=== PATIENT | female | born 2000 | race African-American/Black ===

== ENCOUNTER 2019-05-16 19:10 | Emergency (ER) | payer OTHER ==
[~2019-05-16] VITALS: Ht 154.9 cm; Wt 49.9 kg
[2019-05-16 19:10] VITALS: BP 113/68
--- NOTE | 2019-05-16 19:13 | NUR ---
TO LOBBY A/W BED AMBULATORY
--- NOTE | 2019-05-16 19:37 | NUR ---
PT AMBULATED TO BED 12.
--- NOTE | 2019-05-16 19:40 | NUR ---
PT 18 Y/O FEMALE BIB SELF FOR C/O N/V/D X 2 DAYS. PT AAO X 4. PT HAS 5/10 LOWER ABD PAIN PROVOKED BY PALPATION AND VOMITING. PT STATES SHE HAS X 5 EPISODES OF VOMITING DAILY. AMD IS SOFT, FLAT, AND TENDER UPON PALPATION. RESPIRATIONS ARE EVEN AND UNLABORED. SKIN IS WARM AND DRY TO TOUCH. BED LOCKED AND IN LOWEST POSIOTION. MEDHX: NONE ALLERGIES: NKA
--- NOTE | 2019-05-16 19:48 | NUR ---
DR YAUN AT BEDSIDE.
[2019-05-16] MEDS ORDERED: NACL 0.9% 1,000 ML IV ONE (19:50)
[2019-05-16] MEDS ORDERED: METOCLOPRAMIDE 10 MG/2 ML INJ VIAL IVP ONE (19:50)
[2019-05-16 20:10] LABS: BASOPHILS % (AUTO) 0.3 % (0.0-2.0); HEMATOCRIT 42.6 % (36-48); HEMOGLOBIN 14.2 g/dL (12.0-16.0); LYMPHOCYTES # (AUTO) 1.2 K/uL (2.5-16.5); LYMPHOCYTES % (AUTO) 18.8 % (20.5-51.1); MEAN CORPUSCULAR HEMOGLOBIN 27 pg (27-31); MEAN CORPUSCULAR HGB CONC 33 g/dL (33-37); MEAN CORPUSCULAR VOLUME 80.6 fL (80-94); MONOCYTES # (AUTO) 0.6 K/uL (0.8-1.0); MONOCYTES % (AUTO) 8.8 % (1.7-9.3); NEUTROPHILS # (AUTO) 4.6 K/uL (1.8-7.7); NEUTROPHILS % (AUTO) 72.1 % (42.2-75.2); PLATELET COUNT (AUTO) 238 K/uL (140-450); RED BLOOD CELL COUNT(AUTO) 5.29 MIL/uL (4.20-5.40); WHITE BLOOD COUNT (AUTO) 6.3 K/uL (4.5-11.0)
[2019-05-16 20:24] LABS: ANION GAP 16.2 (8-16); CARBON DIOXIDE 26.7 mmol/L (21-32); CREATININE 1.1 mg/dL (0.6-1.3); POTASSIUM 3.9 mmol/L (3.5-5.1)
[2019-05-16 20:29] LABS: ALBUMIN 4.8 g/dL (3.4-5.0); TOTAL BILIRUBIN 1.3 mg/dL (0.0-1.0)
[2019-05-16] MEDS ORDERED: PROCHLORPERAZINE 10 MG/2 ML VIAL IVP ONE (20:50)
--- NOTE | 2019-05-16 20:50 | NUR ---
PT GIVEN REGLAN IVP WITH INEFFECTIVE RESULTS. DR. YUAN NOTIFED AND GAVE NEW ORDER FOR COMPAZINE 10 IVP. IV SITE AT L AC. NS 0.9% 1L RUNNING W/O CONTINUSLY. IV SITE IS PATENT, NO SWELLING, REDNESS, OR PAIN NOTED. WILL CONTINUE TO MONITOR.
[2019-05-16] MEDS ORDERED: KETOROLAC 30 MG/ML VIAL IVP ONE (21:20)
--- NOTE | 2019-05-16 22:18 | NUR ---
PT CAME BACK FROM CT.
--- NOTE | 2019-05-16 23:06 | NUR ---
Note criss in ED - 05/16/19 at 2307 by [facility] BINDER TECHNICIAN AT BEDSIDE. BREATHING TX IN PROGRESS.
--- NOTE | 2019-05-16 23:30 | NUR ---
PT STATES HER ABD PAIN IS NOW 0/10. PT STATES NAUSEA HAS DECREASED. RESPIRATIONS ARE EVEN AND UNLABORED SKIN IS WARM AND DRY TO TOUCH. PT RESTING IN BED EYES OPEN. BED LOCKED AND IN LOWEST POSITION.
[2019-05-16 23:34] VITALS: BP 113/68
== END 2019-05-16 23:34 | disposition home or self-care (01) ==
LOC: MED 19:10
DX: K52.9 Noninfective gastroenteritis and colitis, unspecified (principal)
CPT/HCPCS: 36415; 74176; 80053; 81025; 85025; 87804; 96361; 96374; 96375; 99284; J0780; J1885; J2765; J7030

== ENCOUNTER 2022-01-01 09:18 | Emergency (ER) | payer BC, OTHER ==
[~2022-01-01] VITALS: Ht 154.9 cm; Wt 59.9 kg
[2022-01-01 09:47] VITALS: BP 124/85
--- NOTE | 2022-01-01 10:06 | NUR ---
21/F PRESENTS TO ED WITH C/O LOWER ABDOMINAL PAIN, N/V/D SINCE THIS MORNING. REPORTS SHE STARTED HER PERIOD TODAY AND SOMETIMES CAUSES SIMILAR SYMPTOMS. PATIENT ADMITS TO DRINKING BEER AND SMOKING MARIJUANA LAST NIGHT, STATES SHE TOOK TYLENOL BUT VOMITED IT UP. DENIES RECENT SICK CONTACTS.
[2022-01-01] MEDS ORDERED: NACL 0.9% 1,000 ML IV SCH (10:20)
[2022-01-01] MEDS ORDERED: ONDANSETRON 4 MG/2 ML VIAL IVP ONE ×2 (10:20→12:15)
[2022-01-01] MEDS ORDERED: FAMOTIDINE 20 MG/2 ML VIAL IVP ONE (10:20)
[2022-01-01] MEDS ORDERED: KETOROLAC 30 MG/ML VIAL IVP ONE (10:20)
[2022-01-01 11:07] LABS: BASOPHILS % (AUTO) 0.3 % (0.0-2.0); HEMATOCRIT 35.2 % (36-48); HEMOGLOBIN 11.9 g/dL (12.0-16.0); LYMPHOCYTES # (AUTO) 0.8 K/uL (2.5-16.5); LYMPHOCYTES % (AUTO) 8.8 % (20.5-51.1); MEAN CORPUSCULAR HEMOGLOBIN 27 pg (27-31); MEAN CORPUSCULAR HGB CONC 34 g/dL (33-37); MEAN CORPUSCULAR VOLUME 80.2 fL (80-94); MONOCYTES # (AUTO) 0.3 K/uL (0.8-1.0); MONOCYTES % (AUTO) 2.8 % (1.7-9.3); NEUTROPHILS # (AUTO) 8.1 K/uL (1.8-7.7); NEUTROPHILS % (AUTO) 88.1 % (42.2-75.2); PLATELET COUNT (AUTO) 218 K/uL (140-450); RED BLOOD CELL COUNT(AUTO) 4.38 MIL/uL (4.20-5.40); RED CELL DISTRIBUTION WIDTH 13.4 % (11.6-13.7); WHITE BLOOD COUNT (AUTO) 9.2 K/uL (4.8-10.8)
[2022-01-01 11:11] LABS: ALBUMIN 3.5 g/dL (3.4-5.0); ANION GAP 13.4 (8-16); CARBON DIOXIDE 23.6 mmol/L (21-32); TOTAL BILIRUBIN 0.3 mg/dL (0.0-1.0)
[2022-01-01] MEDS ORDERED: ATRO1TAB PO (12:32)
[2022-01-01] MEDS ORDERED: ONDA-188 PO (12:32)
[2022-01-01] MEDS ORDERED: METOCLOPRAMIDE 10 MG/2 ML INJ VIAL IVP ONE (13:00)
[2022-01-01] MEDS ORDERED: METOCLOPRAMIDE 10 MG/2 ML INJ VIAL ONE (13:01)
[2022-01-01 13:20] VITALS: BP 110/91
--- NOTE | 2022-01-01 13:20 | NUR ---
Patient discharged with v/s stable. Written and verbal after care instructions given and explained. Patient alert, oriented and verbalized understanding of instructions. Ambulatory with steady gait. All questions addressed prior to discharge. ID band removed. Patient advised to follow up with PMD. Rx of LOMOTIL AND ZOFRAN given. Patient educated on indication of medication including possible reaction and side effects. Opportunity to ask questions provided and answered.
== END 2022-01-01 13:20 | disposition home or self-care (01) ==
LOC: MED 09:18
DX: R19.7 Diarrhea, unspecified (principal); R11.2 Nausea with vomiting, unspecified; F17.210 Nicotine dependence, cigarettes, uncomplicated; F12.90 Cannabis use, unspecified, uncomplicated; Z79.899 Other long term (current) drug therapy
CPT/HCPCS: 36415; 80053; 81002; 81025; 83690; 85025; 96361; 96374; 96375; 96376; 99284; J1885; J2405; J2765; J3490; J7030

== ENCOUNTER 2022-01-03 10:05 | Emergency (ER) | payer OTHER ==
[~2022-01-03] VITALS: Ht 154.9 cm; Wt 58.5 kg
[~2022-01-03 10:05] MED LIST: ATRO1TAB PO; ONDA-188 PO
[2022-01-03 10:18] VITALS: BP 122/64
--- NOTE | 2022-01-03 11:51 | NUR ---
AMBULATED TO BED 5
[2022-01-03] MEDS ORDERED: ONDANSETRON 4 MG/2 ML VIAL IVP ONE (12:30)
[2022-01-03] MEDS ORDERED: diphenhydrAMINE 50 MG/ML VIAL IVP ONE (12:30)
[2022-01-03] MEDS ORDERED: NACL 0.9% 1,000 ML IV ONE (12:30)
--- NOTE | 2022-01-03 13:07 | NUR ---
21YO FEMALE PT C/O LOWER ABDOMINAL DISCOMFORT DUE TO N/V X3DAYS. PT UNABLE TO RECALL XVOMIT AND NOTES BLOOD. STATES TRYING TO TAKE TYLENOL FOR RELIEF BUT WAS UNABLE TO KEEP DOWN. ABDOMEN NON DISTENDED OR TENDER, ACTIVE X4. DENIES CHEST PAIN, SOB, FEVR OR CHILLS. PT WAS RECENTLY SEEN IN ER FOR S/S W/ NO RELIEF AFTER D/C . PT AAOX4, RESPIRATIONS EVEN AND UNLABORED. HX: DENIES NKA
[2022-01-03 13:22] LABS: BASOPHILS % (AUTO) 0.4 % (0.0-2.0); EOSINOPHILS % (AUTO) 0.1 % (0.0-4.0); HEMATOCRIT 36.4 % (36-48); HEMOGLOBIN 12.2 g/dL (12.0-16.0); LYMPHOCYTES # (AUTO) 1.4 K/uL (2.5-16.5); LYMPHOCYTES % (AUTO) 20.1 % (20.5-51.1); MEAN CORPUSCULAR HEMOGLOBIN 27 pg (27-31); MEAN CORPUSCULAR HGB CONC 33 g/dL (33-37); MEAN CORPUSCULAR VOLUME 80.2 fL (80-94); MONOCYTES # (AUTO) 0.4 K/uL (0.8-1.0); MONOCYTES % (AUTO) 5.4 % (1.7-9.3); PLATELET COUNT (AUTO) 232 K/uL (140-450); RED BLOOD CELL COUNT(AUTO) 4.54 MIL/uL (4.20-5.40); RED CELL DISTRIBUTION WIDTH 13.1 % (11.6-13.7); WHITE BLOOD COUNT (AUTO) 6.8 K/uL (4.8-10.8)
[2022-01-03 13:34] LABS: ALBUMIN 3.5 g/dL (3.4-5.0); ANION GAP 11.8 (8-16); POTASSIUM 3.8 mmol/L (3.5-5.1); TOTAL BILIRUBIN 0.8 mg/dL (0.0-1.0)
[2022-01-03] MEDS ORDERED: METOCLOPRAMIDE 10 MG/2 ML INJ VIAL IVP ONE (13:35)
[2022-01-03] MEDS ORDERED: LORazepam 2 MG/ML VIAL IVP ONE (13:35)
[2022-01-03] MEDS ORDERED: CAPSAICIN 0.025% CRE 60 GM TUBE TP STA (16:16)
[2022-01-03] MEDS ORDERED: HALOPERIDOL IM 5 MG/ML VIAL IM ONE (16:20)
[2022-01-03] MEDS ORDERED: ONDA-188 PO (18:18)
--- NOTE | 2022-01-03 18:35 | NUR ---
IV removed, catheter intact and site benign. Applied folded 4x4 gauze and tape to stop bleeding.
--- NOTE | 2022-01-03 18:40 | NUR ---
Patient discharged with v/s stable. Written and verbal after care instructions FOR CYCLIC VOMITING given and explained. Patient alert, oriented and verbalized understanding of instructions. Ambulatory with steady gait. All questions addressed prior to discharge. ID band removed. Patient advised to follow up with PMD. Rx of ZOFRAN given. Opportunity to ask questions provided and answered.
--- NOTE | 2022-01-03 18:41 | NUR ---
The patient's care was reviewed and supervised by Trudy Gill RN.
[2022-01-03 18:45] VITALS: BP 123/75
== END 2022-01-03 18:40 | disposition home or self-care (01) ==
LOC: MED 10:05
DX: R11.2 Nausea with vomiting, unspecified (principal); F17.210 Nicotine dependence, cigarettes, uncomplicated; Z79.899 Other long term (current) drug therapy
CPT/HCPCS: 36415; 80053; 81025; 84702; 85025; 93005; 96361; 96372; 96374; 96375; 99285; J1200; J1630; J2060; J2405; J2765; J7030